=== PATIENT | female | born 1995 | race African-American/Black ===

== ENCOUNTER 2016-09-15 17:32 | Emergency (ER) | payer SELFPAY ==
[~2016-09-15] VITALS: Ht 167.6 cm; Wt 61.0 kg
[2016-09-15] MEDS ORDERED: NEURONTIN300 MG PO (18:29)
[2016-09-15] MEDS ORDERED: VALIUM5 MG PO (19:20)
[2016-09-15 19:29] VITALS: BP 132/77
== END 2016-09-15 19:29 | disposition home or self-care (01) ==
LOC: EME 17:32
DX: S29.012A Strain of muscle and tendon of back wall of thorax, initial encounter (principal); V99.XXXA Unspecified transport accident, initial encounter; F17.200 Nicotine dependence, unspecified, uncomplicated
CPT/HCPCS: 71020; 99281; 99284